=== PATIENT | male | born 2000 | race African-American/Black ===

== ENCOUNTER 2019-05-18 22:40 | Emergency (ER) | payer SELFPAY ==
[~2019-05-18] VITALS: Ht 175.3 cm; Wt 77.1 kg
[2019-05-18 22:45] VITALS: BP 138/85
--- NOTE | 2019-05-18 22:47 | NUR ---
PT AMBULATED TO LOBBY TO A/W BED
[2019-05-18 23:59] LABS: BASOPHILS % (AUTO) 0.7 % (0.0-2.0); EOSINOPHILS % (AUTO) 0.6 % (0.0-4.0); HEMATOCRIT 45.5 % (36-52); HEMOGLOBIN 15.2 g/dL (12.0-18.0); LYMPHOCYTES # (AUTO) 2.5 K/uL (2.0-11.5); LYMPHOCYTES % (AUTO) 52.2 % (20.5-51.1); MEAN CORPUSCULAR HEMOGLOBIN 30 pg (27-31); MEAN CORPUSCULAR HGB CONC 33 g/dL (33-37); MEAN CORPUSCULAR VOLUME 90.8 fL (80-94); MONOCYTES # (AUTO) 0.3 K/uL (0.8-1.0); MONOCYTES % (AUTO) 6.9 % (1.7-9.3); NEUTROPHILS # (AUTO) 1.9 K/uL (1.8-7.7); NEUTROPHILS % (AUTO) 39.6 % (42.2-75.2); PLATELET COUNT (AUTO) 179 K/uL (140-450); RED BLOOD CELL COUNT(AUTO) 5.01 MIL/uL (4.20-6.10); RED CELL DISTRIBUTION WIDTH 13.9 % (11.6-13.7); WHITE BLOOD COUNT (AUTO) 4.8 K/uL (4.5-11.0)
--- NOTE | 2019-05-19 00:11 | NUR ---
PT AMBULATED TO BED 12
[2019-05-19 00:15] LABS: ALBUMIN 4.1 g/dL (3.4-5.0); ANION GAP 9.2 (8-16); CARBON DIOXIDE 31.6 mmol/L (21-32); POTASSIUM 3.8 mmol/L (3.5-5.1); TOTAL BILIRUBIN 0.9 mg/dL (0.0-1.0)
--- NOTE | 2019-05-19 00:20 | NUR ---
18 Y/O MALE BIBA C/O CHEST PAIN. DENIES PAIN BUT WHEN HE HAD PAIN IT WAS 7/10 AND IT SRTAYS AT THE [place] REGION AND DOESNT MOVE ANYWHERE ELSE. PT SAYS HES BEEN HAVING CHEST PAIN FOR 3 MONTHS THAT COMES AND GOES. HEART SOUNDS S1S2 PRESENT. NSR. STEADY GAIT. A & O X4. NKA. PMH: HIV +, ANXIETY.
[2019-05-19 00:47] VITALS: BP 138/85
== END 2019-05-19 00:44 | disposition home or self-care (01) ==
LOC: MED 22:40
DX: R07.89 Other chest pain (principal); Z21 Asymptomatic human immunodeficiency virus [HIV] infection status
CPT/HCPCS: 36415; 71045; 80053; 84484; 85025; 93005; 99284